=== PATIENT | female | born 1965 | race Caucasian/White ===

== ENCOUNTER 2022-11-27 17:05 | Emergency (ER) | payer BC ==
[~2022-11-27] VITALS: Ht 162.6 cm; Wt 68.9 kg
[2022-11-27 17:16] VITALS: BP_SYST 99
[2022-11-27] MEDS ORDERED: LORazepam 1 MG TABLET PO ONE (17:45)
[2022-11-27] MEDS ORDERED: NACL 0.9% 1,000 ML IV ONE (18:00)
--- NOTE | 2022-11-27 18:00 | NUR ---
MD DR SUE AT BEDSIDE
--- NOTE | 2022-11-27 18:00 | NUR ---
PT BIBA AWAKE AND ALERT AOX4, NO SOB. PT C/O BEING HYPOTENSIVE AFTER EATING EDIBLE MARIJUNA GUMMIES. PT NOT SURE OF DOSAGE, JUST STATED SHE TOOK TOO. PT AND DAUGHTER ARE BOTH IN ER. PT DENIES HX. PT DENIES N/V.
[2022-11-27 19:45] VITALS: BP_SYST 132
--- NOTE | 2022-11-27 20:07 | NUR ---
Patient given written and verbal discharge instructions and verbalizes understanding. ER MD discussed with patient the results and treatment provided. Patient in stable condition. ID arm band removed. IV catheter removed intact and dressing applied, no active bleeding. Rx of none given. Patient educated on pain management and to follow up with PMD. Pain Scale . Opportunity for questions provided and answered. Medication side effect fact sheet provided.
== END 2022-11-27 20:26 | disposition home or self-care (01) ==
LOC: SED 17:05
DX: T40.711A Poisoning by cannabis, accidental (unintentional), initial encounter (principal); R42 Dizziness and giddiness; F41.9 Anxiety disorder, unspecified; F12.90 Cannabis use, unspecified, uncomplicated; Z79.899 Other long term (current) drug therapy; Y92.89 Other specified places as the place of occurrence of the external cause
CPT/HCPCS: 99283; 96360; 82962; 93005; J7030